=== PATIENT | male | born 1945 | race Caucasian/White ===

== ENCOUNTER → 2017-11-19 | Outpatient (CLI) | payer OTHER, MEDICARE ==
[~2017-11-19] MED LIST: ASPI81TA21 PO; ATOR80TA PO; CLOP1TAB54 PO; FURO20TA PO; METO-551 PO; MULTTAB58 PO; NTRGSL/4 UT
--- NOTE | 2017-11-19 14:13 | DIAGNOSTIC IMAGING REPORT ---
THREE-PHASE NUCLEAR BONE SCAN OF THE KNEES CLINICAL HISTORY: Chronic right knee pain. Right knee pain and swelling. COMPARISON STUDY: Radiographs of the knees dated . TECHNIQUE: Following the IV administration of 26.5 mCi of technetium 99m MDP, three-phase bone scan of the knees was performed. Flow and blood pool phase imaging was acquired both anteriorly and posteriorly. Bone phase imaging of the knees was performed at three hours in multiple obliquities. Note that interpretation is suboptimal without current plain film correlate. FINDINGS: There is mild hyperemia identified involving the right knee on both the flow and blood pool phase images. On the bone phase imaging there are photopenic defects consistent with bilateral knee arthroplasties. There is significant abnormal tracer deposition identified around the right knee arthroplasty involving both the femoral and tibial components. This is greatest around the tibial component. Only low-level tracer deposition is seen around the left knee arthroplasty. IMPRESSION: Three-phase positive bone scan of the right knee. Although this could be related to aseptic loosening or an inflammatory process, infection would be impossible to exclude in the appropriate clinical setting. Clinical and radiographic correlation will be required. Electronically signed by: Mason Maher M.D. 11/19/2017 2:12 PM Dictated Date/Time: 11/19/2017 2:08 PM
[2017-11-19 14:55] LABS: BASO % 0.4 %; BASO ABS # 0.03 K/uL (0-0.2); EOS % 2.9 %; EOS ABS # 0.21 K/uL (0-0.5); HEMATOCRIT 43.9 % (42-52); HEMOGLOBIN 14.9 g/dL (14.0-18.0); IG# 0.03 K/uL (0.00-0.02); LYMPH % 20.9 %; LYMPH ABS # 1.49 K/uL (1.2-3.4); MEAN CELL VOLUME 96.3 fL (80-100); MEAN CORPUSCULAR HEMOGLOBIN 32.7 pg (25-34); MEAN CORPUSCULAR HGB CONC 33.9 g/dl (32-36); MEAN PLATELET VOLUME 10.7 fL (7.4-10.4); MONO % 7.4 %; MONO ABS # 0.53 K/uL (0.11-0.59); NEUT ABS # 4.84 K/uL (1.4-6.5); PLATELET COUNT 180 K/uL (130-400); RED CELL DISTRIBUTION WIDTH CV 13.1 % (11.5-14.5); WHITE BLOOD COUNT 7.13 K/uL (4.8-10.8)
== END | disposition home or self-care (01) ==
LOC: C.NUCL 08:44
DX: Z96.651 Presence of right artificial knee joint (principal)

== ENCOUNTER 2017-12-20 09:32 | Inpatient (IN) | payer OTHER, MEDICARE ==
[2017-12-05 13:05] VITALS: Ht 180.3 cm; Wt 108.0 kg
--- NOTE | 2017-12-05 13:42 | PAT Medication Instructions ---
Service Date Dec 05, 2017. Current Home Medication List Aspirin Enteric Coated (Ecotrin Or Generic), 81 MG PO QA Furosemide (Lasix), 20 MG PO QAM Gabapentin (Neurontin), 300 MG PO BID Loratadine (Claritin), 10 MG PO QAM Metoprolol Tartrate (Lopressor), 50 MG PO BID Multiple Vitamin (Multivitamin), 1 TABLET PO QAM Omeprazole (Prilosec), 20 MG PO DAILYBB Rosuvastatin Calcium (Crestor), 5 MG PO HS Sildenafil Citrate (Viagra), 100 MG PO DIRECTED Medication Instructions For Your Scheduled Surgery - Hold the following medications the morning of surgery: Furosemide (Lasix), 20 MG PO QAM Loratadine (Claritin), 10 MG PO QAM Multiple Vitamin (Multivitamin), 1 TABLET PO QAM Sildenafil Citrate (Viagra), 100 MG PO DIRECTED - Take the following medications the morning of surgery with a sip of water: Aspirin Enteric Coated (Ecotrin Or Generic), 81 MG PO QAM Gabapentin (Neurontin), 300 MG PO BID Metoprolol Tartrate (Lopressor), 50 MG PO BID Omeprazole (Prilosec), 20 MG PO DAILYBB - Take the following medications as scheduled the night before surgery: Gabapentin (Neurontin), 300 MG PO BID Metoprolol Tartrate (Lopressor), 50 MG PO BID Sildenafil Citrate (Viagra), 100 MG PO DIRECTED Rosuvastatin Calcium (Crestor), 5 MG PO HS If you have any questions please call us at [phone] or [phone] or [phone]
--- NOTE | 2017-12-05 14:24 | DIAGNOSTIC IMAGING REPORT ---
CHEST 2 VIEWS ROUTINE CLINICAL HISTORY: Preoperative chest COMPARISON STUDY: August 2010 FINDINGS: The heart is at the upper limits of normal in size. Since the prior study, the patient has developed underlying interstitial lung disease with suspected subpleural reticulation. There is no lobar consolidation.[ There are no pleural effusions. There is no failure. IMPRESSION: Interval development of pulmonary fibrotic changes with a subpleural and lower lobe distribution. Electronically signed by: Ray Hand M.D. 12/05/2017 2:23 PM Dictated Date/Time: 12/05/2017 2:22 PM
[2017-12-05 16:28] LABS: ALBUMIN 3.8 gm/dl (3.4-5.0); CALCIUM 9.2 mg/dl (8.5-10.1); CREATININE 1.45 mg/dl (0.60-1.40); POTASSIUM 4.6 mmol/L (3.5-5.1)
[2017-12-06 08:11] LABS: HEMOGLOBIN A1C 5.7 % (4.5-5.6)
--- NOTE | 2017-12-19 09:08 | HISTORY & PHYSICAL EXAMINATION ---
DATE OF ADMISSION: 12/20/2017 CHIEF COMPLAINT: Right knee pain status post previous right total knee arthroplasty. HISTORY OF PRESENT ILLNESS: The patient is a 72-year-old gentleman approximately 10 years status post bilateral total knee arthroplasty. More recently he has been having increasing pain and recurrent swelling about his right knee. He was seen and evaluated with x-rays which were suspicious for loosening of the femoral and tibial components about the knee due to lucency seen on the x-ray. He had blood work to rule out a septic process. He is now scheduled for a revision right total knee arthroplasty. PAST MEDICAL HISTORY: Coronary artery disease status post CO approximately 7 years ago, hyperlipidemia, stage III chronic kidney disease, hypertension. PAST SURGICAL HISTORY: Bilateral total knees as above. MEDICATIONS: Aspirin 81 mg daily, Plavix 75 mg daily, Flonase 2 sprays each nostril daily, Lasix 20 mg daily, Neurontin 300 mg 2 times daily, Claritin 10 mg daily, Lopressor 50 mg twice daily, multivitamin daily, Prilosec 20 mg daily before first meal, Crestor 5 mg daily, Viagra p.r.n. ALLERGIES: No known drug allergies. SOCIAL HISTORY AND REVIEW OF SYSTEMS: Noncontributory. PHYSICAL EXAMINATION: GENERAL: Well-nourished, well-developed elderly male who appears stated age. HEENT: Normocephalic, atraumatic, extraocular movements intact, oropharynx pink and moist. NECK: Supple without adenopathy. LUNGS: Clear to auscultation bilaterally. HEART: Regular rate and rhythm. ABDOMEN: Soft, nontender, nondistended. EXTREMITIES: The upper extremities are within normal limits. The right knee is neutrally aligned. He has a well-healed midline incision from his previous arthroplasty. His range of motion is from 0-120 degrees. At the time of exam, he had a knee effusion. X-RAYS: X-rays were reviewed. The tibial component has gone into slight varus position. There is lucency noted about the tibial component on both the AP and lateral views. There is probable lucency about the femoral component on the lateral view. The patient also had a bone scan which was suggestive of likely loosening process about the knee replacement. His CRP was normal, sed rate slightly elevated. ASSESSMENT: Aseptic loosening, right total knee. PLAN: Risks versus benefits were discussed, consent was obtained. The patient's primary care physician is Dr. Ko. We will proceed with excisional arthroplasty, right total knee revision as indicated.
[~2017-12-20] VITALS: Ht 180.3 cm; Wt 108.0 kg
[2017-12-20] VITALS (9 sets, daily range): BP systolic 111–136; BP diastolic 72–86; PULSE 65–84; TEMP 34.7–36.8; O2SAT 90–97
[~2017-12-20 09:32] MED LIST changes: +ACETAMINOPHEN 500 MG TAB PO SCH; -ATOR80TA PO; +BUPIVACAINE 0.25% 30 ML VIAL ONE; +BUPIVACAINE 0.5 % 5 MG/1 ML PF 10ML VIAL ONE; +CEFAZOLIN 2000MG IV PUSH 15 ML IV SCH; -CLOP1TAB54 PO; +CLR10 PO; +CeleBREX 200 MG CAP PO SCH; +DEXAMETHASONE 4 MG TAB PO SCH; +FAMOTIDINE 20 MG TAB PO SCH; +GABA-113 PO; +GABAPENTIN 300 MG CAP PO SCH; +LACTATED RINGER'S 1000ML 1,000 ML IV SCH; +LACTATED RINGER'S 1000ML 500 ML IV SCH; -NTRGSL/4 UT; +PRLSR20 PO; +ROPIVACAINE 5MG/ML 30 ML 150 MG, BUPIVACAINE 0.5% MPF INJ 30 ML, EpINEphrine HCL INJ 0.... INFIL SCH; +ROSU5TAB PO; +SILD100T PO
--- NOTE | 2017-12-20 09:40 | History & Physical Bridge Note ---
H&P Re-Evaluation Bridge Note: I have examined the patient, reviewed the History & Physical and in the interval since the performance of the History & Physical I have noted the following changes of clinical significance: No changes noted
[2017-12-20] MEDS ORDERED: CLOP1TAB15 PO (10:06)
[2017-12-20] MEDS ORDERED: PROPOFOL IV EMULSION 10 MG/ML 20 ML VIAL IV ONE ×2 (10:37→14:07)
[2017-12-20] MEDS ORDERED: FENTANYL CITRATE INJ 50 MCG/1 ML 2 ML VIAL ONE (10:37)
[2017-12-20] MEDS ORDERED: MIDAZOLAM HCL 1 MG/ML 2ML VIAL ONE ×3 (10:37→12:19)
[2017-12-20] MEDS ORDERED: BUPIVACAINE/EPINEPHRINE 0.5% MPF 1:200,000 30 ML VIAL ONE (11:25)
[2017-12-20] MEDS ORDERED: BACITRACIN 50000 UNIT VIAL ONE (11:41)
[2017-12-20] MEDS ORDERED: ORTHO JOINT ANESTHETIC ONE (11:41)
[2017-12-20] MEDS ORDERED: POVIDONE-IODINE OP SOLN 30 ML BTL ONE (11:41)
[2017-12-20] MEDS ORDERED: ONDANSETRON INJ 2 MG/ML 2 ML VIAL IV PRN ×2 (12:15→15:00)
[2017-12-20] MEDS ORDERED: EpHEDrine SULFATE INJ 50 MG/ML AMP IV PRN (12:15)
[2017-12-20] MEDS ORDERED: HYDROmorphone INJ 2 MG/ML SYR/VIAL IV PRN (12:15)
[2017-12-20] MEDS ORDERED: KETOROLAC TROMETHAMINE 30 MG/ML VIAL IV. PRN (12:15)
[2017-12-20] MEDS ORDERED: ATROPINE SULFATE 0.1 MG/ML 5ML SYR IV PRN (12:15)
[2017-12-20] MEDS ORDERED: PHENYLEPHRINE 100MCG/ML 5ML SYR IV PRN (12:15)
--- NOTE | 2017-12-20 14:18 | [facility] Post Operative Brief Note ---
Immediate Operative Summary Operative Date Dec 20, 2017. Pre-Operative Diagnosis Asceptic loosening right total knee Post-Operative Diagnosis same Procedure(s) Performed revision tka Surgeon Amie Heater Helper Surgeon(s) Elvira Estimated Blood Loss 20cc Findings Consistent with Post-Op Diagnosis Specimens synovium and components Drains None Anesthesia Type MAC Spinal Regional Complication(s) none Disposition Accompanied Pt To Recover: no Disposition: Recovery Room / PACU
--- NOTE | 2017-12-20 14:49 | OPERATIVE REPORT ---
DATE OF OPERATION: 12/20/2017 PREOPERATIVE DIAGNOSIS: Loosening, right total knee. POSTOPERATIVE DIAGNOSIS: Loosening, right total knee. PROCEDURE: Revision right total knee arthroplasty. SURGEON: Dr. Holloway. ENGINEERING MODEL MAKER: Hugo Felix. Troy Kellyamx, who was present throughout the case, helped in all phases of the procedure including positioning, prepping, draping, surgical services assistant, wound closure and dressing application. ANESTHESIA: Spinal. COMPLICATIONS: None. DESCRIPTION OF PROCEDURE: The patient's right leg was prepped and draped in usual sterile manner. Limb was exsanguinated with an Esmarch bandage, tourniquet inflated to 325 mmHg. Previously made incision was reopened and extended proximally and distally. Subcutaneous tissues were sharply dissected. Electrocautery used for hemostasis. A median parapatellar incision was made and a tense effusion was noted as well as much hypertrophic santillan synovium. There was no evidence of any purulence, no foul odor. The synovectomy was carried out first using sharp dissection. No lateral snip was required. Scar tissue was removed from the back side of the patellar tendon and attention was then turned to the femur. The small flexible osteotome was used to undermine all accessible facets of the femur. Using a single blow with a punch and a mallet, the femur was loosened. Femur was removed, virtually no bone was lost and was found to be significant cystic bone loss behind the lateral femoral condyle. Next, attention was turned to the tibia where an osteotome had previously been used to remove the polyethylene, initial manipulation of the tibial component found to be grossly loose. The tibial component was removed. Next, attention was turned to the tibial canal where the cement was removed from the tip of the stem. Sequential reamings were taken up to a size 13, which gave good filling of the canal. A significant offset was noted to be required. The proximal tibial cut was made using the oscillating saw. This was made perpendicular to the long axis tibia. The bone fragment was removed including much scarred posterior capsule. The boss reamer was utilized over the tibial reamer and the guide was placed to go go dancer the amount of offset. An 8 mm offset stem was required as the size to be used. The trial tibia was then pinned into position and the boss reamer was again utilized at the offset position through the appropriate guide and the tibial spines were prepared using the punch and a mallet. The reamer was removed, the trial tibial was assembled and was impacted into position. Attention was turned to the femur. The femoral canal was entered. Sequential reamings up to a size 18 gave good filling of the canal. A 10 mm posterior augment was required laterally. No other augments were required. The polyethylene insert trial was placed and a very thick polyethylene insert was required. Therefore, the decision was made to place 5 mm augments on the tibia. This was placed and once this was done, a 22 mm tibial poly gave good balance of the soft tissues in both flexion and extension. A cleanup cut was made distally as well as the anterior chamfers and the posterolateral facet. The trial femoral component was assembled and impacted into position. The final trial using the constrained condylar trial was placed, this gave good reproduction of flexion and extension, soft tissue tension as well as full extension. Patella tracked nicely. Throughout the procedure, the original patellar component was protected and this showed no signs of wear or loosening. The trial components were all removed. The joint mix was injected throughout. Pulsatile irrigation was used to thoroughly cleanse the knee. The final components were assembled on the back table. Cement was mixed. First, the femoral component was cemented in position. All excess cement was removed. Following this, blunt Kate was used to expose the tibia and the tibial component was cemented into position on both femoral and tibial sides. Cement was only placed roughly one-third of the stem. The remainder of the stem remained free of cement. The final polyethylene was impacted into position, the retaining pin was placed and the knee was reduced. The knee was thoroughly irrigated once again with pulsatile irrigation. The Betadine soak was utilized and the Hemovac drain was placed. Fascia was closed using #1 Vicryl, subcutaneous tissue was closed using 0 Dexon, and skin was closed with a zip strap. Sterile dressing of Silverlon, 4 x 4's, sterile Webril and double length Lino was applied. The patient tolerated the procedure well. I attest to the content of the Intraoperative Record and any orders documented therein. Any exception s are noted below.
[2017-12-20] MEDS ORDERED: MAGNESIUM HYDROXIDE SUSP 30 ML UDC PO PRN (15:00)
[2017-12-20] MEDS ORDERED: ALUMINUM/MAGNESIUM/SIMETH (MAALOX MAX) 30 ML UDC PO PRN (15:00)
[2017-12-20] MEDS ORDERED: BISACODYL 10 MG SUPP PR PRN (15:00)
[2017-12-20] MEDS ORDERED: TRAMADOL HCL 50 MG TAB PO PRN (15:00)
[2017-12-20] MEDS ORDERED: MoRPHine SULFATE 2 MG/ML CARP IV PRN (15:00)
--- NOTE | 2017-12-20 15:44 | DIAGNOSTIC IMAGING REPORT ---
R KNEE 1 OR 2 VIEWS ROUTINE HISTORY: 72 years-old Male AP/LATERAL IN PACU RIGHT KNEE right knee total joint arthroplasty revision COMPARISON: Right knee radiographs 11/14/2007 TECHNIQUE: 2 views of the right knee FINDINGS: Status post revision of the right knee arthroplasty with placement of a hinged right knee total joint arthroplasty device with elongated femoral and tibial stems. There is satisfactory alignment without periprosthetic fracture identified. 2.1 cm linear corticated bone fragment adjacent to the medial proximal tibia may reflect heterotopic ossification. Anterior midline skin john are noted along with expected postsurgical soft tissue swelling and deep tissue air. Surgical drain is in place. Peripheral vascular disease. IMPRESSION: Right knee total joint arthroplasty with satisfactory alignment. The above report was generated using voice recognition software. It may contain grammatical, syntax or spelling errors. Electronically signed by: Mook Hirsch M.D. 12/20/2017 3:43 PM Dictated Date/Time: 12/20/2017 3:39 PM
--- NOTE | 2017-12-20 15:50 | Anesthesiology Progress Note ---
Anesthesia Post Op Note Date & Time Dec 20, 2017 at 15:50 Vital Signs Pain Intensity: 0 Vital Signs Past 12 Hours Date Time Temp Pulse Resp B/P (MAP) Pulse Ox O2 Delivery O2 Flow Rate FiO2 12/20/17 15:40 77 15 133/81 97 Nasal Cannula 2 12/20/17 15:30 36.1 72 16 135/84 96 Nasal Cannula 2 12/20/17 15:20 70 18 111/58 94 Nasal Cannula 2 12/20/17 15:10 72 17 123/77 92 Nasal Cannula 2 12/20/17 15:00 72 17 150/51 96 Oxymask 10 12/20/17 14:51 36.7 73 24 114/77 98 Oxymask 10 12/20/17 10:43 36.6 76 18 118/81 94 Room Air Notes Mental Status: alert / awake / arousable, participated in evaluation Pt Amnestic to Procedure: Yes Nausea / Vomiting: adequately controlled Pain: adequately controlled Airway Patency, RR, SpO2: stable & adequate BP & HR: stable & adequate Hydration State: stable & adequate Neuraxial Anesthesia: was administered, sensory block is resolving Anesthetic Complications: no major complications apparent
[2017-12-20] MEDS ORDERED: PNEUMOCOCCAL ADMINISTRATION CHARGE ONE (16:45)
[2017-12-20] MEDS ORDERED: PNEUMOCOCCAL POLYSACCHARIDES 25 MCG/0.5 ML VIAL/SYR IM. ONE (16:45)
[2017-12-20] MEDS: FERROUS GLUCONATE 324 MG TAB PO SCH (18:38)
[2017-12-20] MEDS: CEFAZOLIN IV 2,000 MG in SYRINGE 0 ML IV SCH (19:49)
[2017-12-20] MEDS: GABAPENTIN 300 MG CAP PO SCH (20:46)
[2017-12-20] MEDS: CeleBREX 200 MG CAP PO SCH (20:47)
[2017-12-20] MEDS: SENNA 8.6 MG TAB PO SCH (20:47)
[2017-12-20] MEDS: METOPROLOL TARTRATE 50 MG TAB PO SCH (20:47)
[2017-12-20] MEDS: DOCUSATE SODIUM 100 MG CAP PO SCH (20:47)
[2017-12-20] MEDS: ACETAMINOPHEN 500 MG TAB PO SCH (20:48)
[2017-12-20] MEDS: ASPIRIN 81 MG ECTAB PO SCH (20:48)
[2017-12-20] MEDS: ROSUVASTATIN CALCIUM 10 MG TAB PO SCH (20:48)
[2017-12-20] MEDS: D5W AND 1/2NSS + 20MEQ KCL 1,000 ML IV SCH (23:00)
[2017-12-21] MEDS ORDERED: NURSING DECISION MEDICATION ORDER SCH (00:15)
[2017-12-21 03:16] VITALS: BP 113/67; PULSE 79; TEMP 37; O2SAT 96
[2017-12-21] MEDS: CEFAZOLIN IV 2,000 MG in SYRINGE 0 ML IV SCH (03:45)
[2017-12-21] MEDS: ACETAMINOPHEN 500 MG TAB PO SCH ×3 (05:41→20:59)
[2017-12-21 07:44] LABS: HEMATOCRIT 33.6 % (42-52); HEMOGLOBIN 11.3 g/dL (14.0-18.0); MEAN CELL VOLUME 93.6 fL (80-100); MEAN CORPUSCULAR HEMOGLOBIN 31.5 pg (25-34); MEAN CORPUSCULAR HGB CONC 33.6 g/dl (32-36); MEAN PLATELET VOLUME 10.1 fL (7.4-10.4); PLATELET COUNT 159 K/uL (130-400); RED CELL DISTRIBUTION WIDTH CV 13.1 % (11.5-14.5); RED CELL DISTRIBUTION WIDTH SD 44.8 fL (36.4-46.3); WHITE BLOOD COUNT 20.54 K/uL (4.8-10.8)
[2017-12-21 07:48] VITALS: BP_SYST 129; BP_SYST 151; BP_DIAS 73; BP_DIAS 79; PULSE 66; PULSE 92; TEMP 36.5; TEMP 36.7; O2SAT 92; O2SAT 94
--- NOTE | 2017-12-21 08:03 | Clinical Documentation Query ---
CLINICAL DOCUMENTATION QUERY Dr. URIBE, In your clinical opinion is this patient being managed for: ( ) Expected Acute blood loss anemia ( ) Not Agree ( ) Other explanation of clinical findings (Please Explain) ( ) Unable to determine (Please Define) ( ) Need to Discuss The medical record reflects the following clinical findings, treatment, and risk factors. Clinical Indicators: 72 yo male presenting for aseptic loosening R TKA for revision of same. EBL of 10 cc with additional 830 cc hemovac drainage. Treatment: IV fluids, monitor CBC Risk Factors: expected surgical related blood loss Please clarify and document your clinical opinion in the progress notes and discharge summary. Terms such as "probable", "suspected", "likely", "questionable", "possible", or "still to be ruled out" are acceptable. IF IN AGREEMENT, YOU MUST DOCUMENT ABOVE DIAGNOSTIC STATEMENT IN DAILY PROGRESS NOTES AND DISCHARGE SUMMARY. This document is not part of the patient's record. Thank You, Chrystal Mota RN [phone]
--- NOTE | 2017-12-21 08:04 | Orthopedic Progress Note ---
Orthopedic Progress Note Date of Service Dec 21, 2017. Subjective Post OP Day: 1 Reports: feeling well, Denies: chest pain, SOB, nausea / vomiting, light headedness, calf pain Objective calves soft nontender, N/V intact, capillary refill less than 2 sec., dressing C /D/I (PREVENA), A&O x3, toes mobile, hemovac drainage (430/400 CC PER SHIFT) Date Time Temp Pulse Resp B/P (MAP) Pulse Ox O2 Delivery O2 Flow Rate FiO2 12/21/17 03:16 37.0 79 14 113/67 (82) 96 Room Air 12/20/17 23:45 Room Air 12/20/17 23:39 36.5 74 16 111/72 (85) 90 Room Air 12/20/17 20:45 84 133/83 (100) 12/20/17 19:27 36.4 80 18 124/78 (93) 95 Room Air 12/20/17 17:55 36.8 69 18 121/76 (91) 95 Room Air 12/20/17 17:42 36.4 94 Room Air 12/20/17 16:59 34.8 67 18 124/82 (96) 94 Nasal Cannula 3.0 12/20/17 16:30 34.7 65 18 134/86 (102) 95 Nasal Cannula 3.0 12/20/17 16:00 97 Nasal Cannula 3.0 12/20/17 16:00 36.8 69 18 136/84 (101) 97 Nasal Cannula 3.0 12/20/17 16:00 97 Nasal Cannula 3.0 12/20/17 15:40 77 15 133/81 97 Nasal Cannula 2 12/20/17 15:30 36.1 72 16 135/84 96 Nasal Cannula 2 12/20/17 15:20 70 18 111/58 94 Nasal Cannula 2 12/20/17 15:10 72 17 123/77 92 Nasal Cannula 2 12/20/17 15:00 72 17 150/51 96 Oxymask 10 12/20/17 14:51 36.7 73 24 114/77 98 Oxymask 10 12/20/17 10:43 36.6 76 18 118/81 94 Room Air Laboratory Results 24 Hours: Test 12/21/17 07:25 Hematocrit 33.6 % Hemoglobin 11.3 g/dL Assessment & Plan Assessment: POD#1 REVISION RIGHT TKA Plan: PT/OT DVT PROPH- ASA 81MG BID PAIN MANAGEMENT DC PLANNING- DC HOME TOMORROW WITH OUTPATIENT PT DC DRESSING/DRAIN
--- NOTE | 2017-12-21 08:05 | Discharge Instructions ---
Discharge Instructions Date of Service Dec 21, 2017. Admission Reason for Admission: Mechanical Loosening of Other Internal Prosthetic Discharge Discharge Diagnosis / Problem: SP RIGHT TKA REVISION Discharge Goals Goal(s): Decrease discomfort, Improve function, Increase independence Activity Recommendations Activity Limitations: per Instructions/Follow-up section . Instructions / Follow-Up Instructions / Follow-Up ACTIVITY RECOMMENDATIONS: SELF CARE INSTRUCTIONS AFTER TOTAL KNEE REPLACEMENT A. You may need to continue a physical therapy program after discharge from the hospital. There are several options available to you. Your doctor will assist you in selecting the best one for you. 1. An out-patient facility 2 to 3 times a week for therapy or home therapy. 2. Continue working on all exercises taught to you in the hospital. Your goals should be to increase bending of your knee to 90 degrees and beyond and to fully straighten your knee. B. You may progress at your own pace from walking with a walker or crutches to a cane; then to no assistive devices. C. Make walking a part of your daily routine. Be up as much as comfortable with rest periods throughout the day. Rest with leg elevation is very important. Use the ice wrap frequently for the first 3-4 weeks. D. There are no restrictions on activities. You may ride in a car, shop, participate in poll clerk and all social activities. E. Wear the long elastic stockings (KATHE hose) 20 hours a day for 2 weeks after surgery. They can be removed several times a day for laundering and for a bath. F. You may shower, no tub baths until cleared by your doctor. SPECIAL CARE INSTRUCTIONS: VERY IMPORTANT TO READ AND REVIEW A. There are a few signs you need to watch for after you are home. Call [facility] if you notice any of the followin. Increased severe knee pain. Some pain is expected especially when you exercise. 2. Increased swelling in your leg or knee; pain or swelling of the calf muscle in either lower leg. 3. Any fluid drainage from the incision. 4. Shortness of breath or chest pain. B. Please call [facility] at if you have any concerns or questions about your operation or recovery. The doctor or his nurse will return your call promptly. C. You must take antibiotics before dental work, bladder, bowel or other surgery. Your doctor will provide you with a permanent care to carry describing this precaution. IMPORTANT: * REMEMBER TO TAKE ASPIRIN, 81 MG, TWICE DAILY FOR 4 WEEKS UNLESS OTHERWISE DIRECTED. THIS IS YOUR BLOOD THINNER. * HIGH RISK PATIENTS MAY BE PRESCRIBED A STRONGER BLOOD THINNER. THIS WILL BE PROVIDED AT DISCHARGE. * CALL IF INCREASED PAIN, REDNESS, DRAINAGE OR FEVER GREATER THAT 101. * WEAR KATHE HOSE 20 HOURS PER DAY FOR 2 WEEKS. Prevena- This is a large suction dressing covering your incision. This will help pull any excess drainage from the wound and allow your incision to heal properly. You may shower with this if you can keep the unit outside of the shower. If any bleeding or leakage is noted please call your doctor's office. This will remain on your incision for 7 days and then should be removed. This can be done yourself or by the home nursing staff if applicable. The entire unit is disposable once removed. Once removed, keep incision clean and dry. If redness or drainage is noted, please call your surgeon. FOLLOW UP VISIT: If appointment is not already scheduled: Please call [facility] to make a follow-up appointment for 2 weeks after your surgery at . Current Hospital Diet Patient's current hospital diet: Regular Diet Discharge Diet Recommended Diet: Regular Diet Procedures Procedures Performed: revision tka Pending Studies Studies pending at discharge: no Laboratory Results Hemoglobin A1c Test 12/05/17 13:52 Range/Units Estimated Average Glucose 117 mg/dl Hemoglobin A1c 5.7 H 4.5-5.6 % Medical Emergencies . Who to Call and When: Medical Emergencies: If at any time you feel your situation is an emergency, please call 911 immediately. . Non-Emergent Contact Non-Emergency issues call your: Surgeon . "Provider Documentation" section prepared by Rhonda Hayes. .
[2017-12-21 08:12] LABS: CALCIUM 8.4 mg/dl (8.5-10.1); CREATININE 1.49 mg/dl (0.60-1.40); POTASSIUM 4.8 mmol/L (3.5-5.1)
[2017-12-21] MEDS: LORATADINE 10 MG TAB PO SCH (08:36)
[2017-12-21] MEDS: ASPIRIN 81 MG ECTAB PO SCH ×2 (08:36→21:00)
[2017-12-21] MEDS: GABAPENTIN 300 MG CAP PO SCH ×2 (08:36→20:59)
[2017-12-21] MEDS: MULTIVITAMIN TAB PO SCH (08:36)
[2017-12-21] MEDS: PANTOprazole SOD 40 MG TAB PO SCH (08:36)
[2017-12-21] MEDS: METOPROLOL TARTRATE 50 MG TAB PO SCH ×2 (08:37→20:59)
[2017-12-21] MEDS: FERROUS GLUCONATE 324 MG TAB PO SCH ×3 (08:37→17:06)
[2017-12-21] MEDS: CeleBREX 200 MG CAP PO SCH ×2 (08:37→20:58)
[2017-12-21] MEDS: D5W AND 1/2NSS + 20MEQ KCL 1,000 ML IV SCH (08:38)
[2017-12-21] MEDS: DOCUSATE SODIUM 100 MG CAP PO SCH ×2 (09:17→20:59)
[2017-12-21 11:28] VITALS: BP 119/71; PULSE 69; TEMP 36.6; O2SAT 92
[2017-12-21 15:44] VITALS: BP 120/62; PULSE 71; TEMP 36.9; O2SAT 95
[2017-12-21] MEDS: OXYCODONE HCL IR 5 MG TAB (IMMEDIATE RELEASE) PO PRN (19:10)
[2017-12-21] MEDS: ROSUVASTATIN CALCIUM 10 MG TAB PO SCH (22:33)
[2017-12-21] MEDS: SENNA 8.6 MG TAB PO SCH (22:33)
[2017-12-21 23:26] VITALS: BP 116/62; PULSE 72; TEMP 36.7; O2SAT 91
[2017-12-22] MEDS: OXYCODONE HCL IR 5 MG TAB (IMMEDIATE RELEASE) PO PRN (02:05)
[2017-12-22] MEDS: ACETAMINOPHEN 500 MG TAB PO SCH (05:32)
[2017-12-22 06:25] VITALS: BP 115/70; PULSE 73; TEMP 36.5; O2SAT 95
[2017-12-22] MEDS: FERROUS GLUCONATE 324 MG TAB PO SCH (07:34)
[2017-12-22] MEDS: LORATADINE 10 MG TAB PO SCH (07:34)
[2017-12-22] MEDS: ASPIRIN 81 MG ECTAB PO SCH (07:35)
[2017-12-22] MEDS: MULTIVITAMIN TAB PO SCH (07:36)
[2017-12-22] MEDS: METOPROLOL TARTRATE 50 MG TAB PO SCH (07:36)
[2017-12-22] MEDS: GABAPENTIN 300 MG CAP PO SCH (07:36)
[2017-12-22] MEDS: PANTOprazole SOD 40 MG TAB PO SCH (07:37)
[2017-12-22] MEDS: CeleBREX 200 MG CAP PO SCH (07:59)
[2017-12-22] MEDS: DOCUSATE SODIUM 100 MG CAP PO SCH (07:59)
[2017-12-22] MEDS ORDERED: CLOPIDOGREL BISULFATE 75 MG TAB PO SCH (09:00)
--- NOTE | 2017-12-22 09:35 | Orthopedic Progress Note ---
Orthopedic Progress Note Date of Service Dec 22, 2017. Subjective Post OP Day: 2 Reports: feeling well, Denies: chest pain, SOB, nausea / vomiting, light headedness, calf pain Additional Notes: PREVENA DRAINING BLOODY FLUID. RENEWED CANISTER LAST NIGHT. Objective calves soft nontender, N/V intact, capillary refill less than 2 sec., dressing C /D/I (PREVENA, SOME BLOODY DRAINAGE IN TUBING), A&O x3, toes mobile Date Time Temp Pulse Resp B/P (MAP) Pulse Ox O2 Delivery O2 Flow Rate FiO2 12/22/17 08:26 Room Air 12/22/17 06:25 36.5 73 18 115/70 (85) 95 Room Air 12/21/17 23:30 Room Air 12/21/17 23:26 36.7 72 18 116/62 (80) 91 Room Air 12/21/17 15:44 36.9 71 18 120/62 (81) 95 Room Air 12/21/17 15:30 Room Air 12/21/17 11:28 36.6 69 16 119/71 (87) 92 Assessment & Plan Assessment: POD#2 REVISION RIGHT TKA Plan: PT/OT DVT PROPH- ASA 81MG BID PAIN MANAGEMENT DC PLANNING- DC HOME TODAY WITH OUTPATIENT PT PREVENA WITH BLOODY DRAINAGE. WILL CLOSELY MONITOR. DC WITH EXTRA CANISTER. HE' S DOING PT AT [facility] [place] SO SOMEONE CAN CHECK THE DRESSING SUNDAY.
[2017-12-22] MEDS ORDERED: ASPEC81 PO (09:36)
[2017-12-22] MEDS ORDERED: ACET-24 PO (09:36)
[2017-12-22] MEDS ORDERED: RXC5 PO (09:36)
[2017-12-22] MEDS ORDERED: ONDA-170 PO (09:36)
[2017-12-22] MEDS ORDERED: SENN-61 PO (09:36)
[2017-12-22 10:09] VITALS: BP 115/70; PULSE 73; TEMP 36.5; O2SAT 95
--- NOTE | 2017-12-30 18:32 | DISCHARGE SUMMARY ---
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 SECONDARY DIAGNOSES: Coronary artery disease status post myocardial infarction, hyperlipidemia, stage III chronic kidney disease, and hypertension. CONSULTATIONS: None. COMPLICATIONS: None. PROCEDURES: Right revision TKA by Dr. Holloway on 12/20/2017. BRIEF HISTORY: As dictated in the history and physical. HOSPITAL SUMMARY: The patient was admitted on the above date and had the above known surgery performed, which he tolerated well. On the first postoperative day, he was feeling well and had no complaints. Calves were soft and nontender. Neurovascularly intact. Dressings are clean, dry, and intact, which he had a Prevena external wound VAC on and was functioning. Toes were mobile. Vital signs are stable. He was afebrile and hemoglobin was 11.3. He was started on physical therapy protocol and continued on DVT prophylaxis and pain management. By the second postoperative day, he was feeling well and had no complaints. The Prevena was draining bloody fluid and a canister have been renewed the previous night. Calves are soft and nontender. Neurovascularly intact. Prevena with some bloody drainage in the tubing. Toes were mobile. Vital signs were stable. He was afebrile. He was progressing well with physical therapy and plans were to monitor the Prevena closely upon discharge. He was going to be discharged to home with an extra canister for collection for the Prevena. He was planning on doing physical therapy at the [facility] and plans were to check the dressing on Sunday. He was otherwise remaining stable and it was felt he could be discharged to home. For further review, please see chart. LAB AND X-RAY DATA: As per chart. DISCHARGE INSTRUCTIONS: The patient was discharged to home in satisfactory condition on 12/22/2017. DIET: Regular. ACTIVITY: Follow TKA instruction sheets and special care instructions as noted. Follow up with Dr. Holloway in 2 weeks. The patient to call for appointment if one has not been made for you. DISCHARGE MEDICATIONS: Acetaminophen 1000 mg p.o. q. 8 hours for 30 days, aspirin 81 mg p.o. b.i.d. for 30 days, Zofran 8 mg p.o. q. 8 hours p.r.n. nausea, oxycodone 5-10 mg p.o. q. 4 hours p.r.n., senna 17.2 mg p.o. at bedtime for 14 days. Resume home meds including Plavix 75 mg p.o. daily and after 30 days, resume once daily dosing of aspirin.
== END 2017-12-22 12:54 | disposition home or self-care (01) | DRG 468 ==
LOC: C.ACU 09:32 → C.3E 09:50 → ENRESERV 15:12
PROC: 0SRC0J9 Replacement of Right Knee Joint with Synthetic Substitute, Cemented, Open Approach (ICD-10-PCS; principal; 2017-12-20 12:00)
PROC: 0SPC0JZ Removal of Synthetic Substitute from Right Knee Joint, Open Approach (ICD-10-PCS; principal; 2017-12-20 12:00)
DX: T84.032A Mechanical loosening of internal right knee prosthetic joint, initial encounter (principal); I25.10 Atherosclerotic heart disease of native coronary artery without angina pectoris; I25.2 Old myocardial infarction; E78.5 Hyperlipidemia, unspecified; I13.10 Hypertensive heart and chronic kidney disease without heart failure, with stage 1 through stage 4 chronic kidney disease, or unspecified chronic kidney disease; N18.3 Chronic kidney disease, stage 3 (moderate); Z79.899 Other long term (current) drug therapy; Z79.82 Long term (current) use of aspirin; Z79.02 Long term (current) use of antithrombotics/antiplatelets; Z96.653 Presence of artificial knee joint, bilateral; Y83.1 Surgical operation with implant of artificial internal device as the cause of abnormal reaction of the patient, or of later complication, without mention of misadventure at the time of the procedure